=== PATIENT | female | born 1995 | race American Indian/Alaskan Native ===

== ENCOUNTER 2019-04-12 05:57 | Inpatient (IN) | payer MEDICAID ==
[2019-04-12] MEDS ORDERED: LACTATED RINGERS 1,000 ML ONE (06:23)
[2019-04-12] MEDS ORDERED: PITOCin/NS 20 UNIT/1000ML DRIP 20,000 MILLIUNITS/1,000 ML BAG IV ONE (06:24)
[2019-04-12] MEDS ORDERED: BRETHINE SUB-Q PRN (06:30)
[2019-04-12] MEDS ORDERED: MINERAL OIL PO PRN (06:30)
[2019-04-12] MEDS ORDERED: XYLOCAINE 2% INFILTRATI ONE (06:30)
[2019-04-12] MEDS ORDERED: BRETHINE IVP PRN (06:30)
[2019-04-12] MEDS ORDERED: SUBLIMAZE ONE (06:46)
[2019-04-12] MEDS ORDERED: PITOCin/NS 20 UNIT/1000ML DRIP 20 UNITS/1,000 ML BAG IV SCH ×2 (07:00→09:38)
[2019-04-12] MEDS ORDERED: LACTATED RINGERS 1,000 ML IV SCH (07:00)
[2019-04-12] MEDS ORDERED: PITOCin/NS 30 UNIT/500ML 30 UNITS/500 ML BAG IV SCH (07:00)
[2019-04-12 07:01] LABS: Hematocrit 33.6 % (30.3-42.9); Mean Corpuscular HGB Conc 33 % (30-34); Mean Corpuscular Volume 77 fl (79-97); Platelet Count 283 K/mm3 (140-440); Red Blood Count 4.35 M/mm3 (3.65-5.03)
[2019-04-12] MEDS ORDERED: SUBLIMAZE IV ONE (07:25)
--- NOTE | 2019-04-12 07:43 | History and Physical Report ---
History of Present Illness Date of examination: 04/12/19 Date of admission: 04/12/19 06:02 Chief complaint: contractions History of present illness: Pt is a 23 year old -[place] female BUZZ 04/15/19 at 39w4d who presents with contractions and advanced cervical dilation. She received care at an office that delivers at [facility] and presents with some of her labs. She is grossly ruptured on presentation. Her GBS status is negative. Past History Past Medical History: no pertinent history Past Surgical History: no surgical history - Obstetrical History Expected Date of Delivery: 04/15/19 Actual Gestation: 39 Week(s) 4 Day(s) : 2 Para: 1 Hx # Term Pregnancies: 1 Number of Pregnancies: 0 Spontaneous Abortions: 0 Induced : 0 Number of Living Children: 1 Medications and Allergies Allergies Allergy/AdvReac Type Severity Reaction Status Date / Time No Known Allergies Allergy Verified 04/12/19 06:26 Home Medications Medication Instructions Recorded Confirmed Last Taken Type Gentamicin 0.3% Ophth Soln 1 drops OP Q4H #1 bottle 03/25/14 Unknown Rx Active Meds: Active Medications Ephedrine Sulfate (Ephedrine Sulfate) 10 mg IV Q2M PRN PRN Reason: Hypotension Oxytocin/Sodium Chloride (Pitocin/Ns 20 Unit/1000ml Drip) 20 units in 1,000 mls @ 125 mls/hr IV DIRECT ITALIA Last Admin: 04/12/19 07:24 Dose: 125 mls/hr Documented by: Oxytocin/Sodium Chloride (Pitocin/Ns 30 Unit/500ml) 30 units in 500 mls @ 1 mls/hr IV TITR ITALIA; Protocol Lactated Ringer's (Lactated Ringers) 1,000 mls @ 125 mls/hr IV DIRECT ITALIA Last Admin: 04/12/19 06:50 Dose: 125 mls/hr Documented by: Mineral Oil (Mineral Oil) 30 ml PO QHS PRN PRN Reason: Constipation Terbutaline Sulfate (Brethine) 0.25 mg SUB-Q ONCE PRN PRN Reason: Hyperstimulation/Hypertonicity Terbutaline Sulfate (Brethine) 0.25 mg IVP ONCE PRN PRN Reason: Hyperstimulation/Hypertonicity Review of Systems All systems: negative - Vital Signs Vital signs: Vital Signs Pulse Pulse Ox 92 H 100 04/12/19 06:24 04/12/19 06:24 Temp Pulse Resp BP Pulse Ox 106 H 107/57 98 04/12/19 07:14 04/12/19 07:14 04/12/19 06:54 - Physical Exam Breasts: Positive: deferred Cardiovascular: Regular rate Lungs: Positive: Clear to auscultation Abdomen: Positive: soft (obese, gravid ) Uterus: Positive: enlarged (gravid ) Extremities: Positive: normal - Obstetrical FHR: auscultation normal Uterine Contraction Monitor Mode: External Cervical Dilatation: 9 Cervical Effacement Percentage: 90 station: -1 Uterine Contraction Pattern: Regular Uterine Tone Measurement Phase: Resting Uterine Contraction Intensity: Strong/Firm Results Result Diagrams: 04/12/19 06:00 Abnormal lab results 04/12/19 Range/Units 06:00 MCV 77 L (79-97) fl MCH 25 L (28-32) pg RDW 17.0 H (13.2-15.2) % All other labs normal. Assessment and Plan A: IUP at 39w4d Active labor GBS Negative Rh Negative Obesity P: Admit to labor and delivery Routine intrapartum care
--- NOTE | 2019-04-12 07:44 | Procedure Note ---
OB Delivery Note - Delivery Date of Delivery: 04/12/19 Surgeon: EDWIN HENNESSY Estimated blood loss: other (400 mL) - Vaginal Delivery presentation: vertex Delivery position: OA Delivery induction: none Delivery monitor: external FHT, external uterine Route of delivery: Delivery placenta: spontaneous Delivery cord: 3 umbilical vessels Episiotomy: none Delivery laceration: 2nd degree (repaired with 2-0 Vicryl in a standard fashion ) Delivery repair: vicryl Anesthesia: local, intravenous - A at 1 minute: 8 at 5 minutes: 9 Infant Gender: Male (3644g (8lb 1 oz) @ 0700 AM)
[2019-04-12] MEDS ORDERED: BENADRYL PO PRN (09:38)
[2019-04-12] MEDS ORDERED: LANSINOH TP PRN (09:38)
[2019-04-12] MEDS ORDERED: TYLENOL PO PRN (09:38)
[2019-04-12] MEDS ORDERED: SODIUM CHLORIDE FLUSH SYRINGE 10 ML IV NR (09:38)
[2019-04-12] MEDS ORDERED: PHENERGAN PO PRN (09:38)
[2019-04-12] MEDS ORDERED: PHENERGAN PR PRN (09:38)
[2019-04-12] MEDS ORDERED: DERMOPLAST TP PRN (09:38)
[2019-04-12] MEDS ORDERED: ZOFRAN IV PRN (09:38)
[2019-04-12] MEDS ORDERED: TUCKS PAD TP PRN (09:38)
[2019-04-12] MEDS ORDERED: DULCOLAX PR PRN (10:00)
[2019-04-12] MEDS: FEOSOL PO SCH ×2 (11:07→21:49)
[2019-04-12] MEDS: IBUPROFEN PO SCH ×2 (11:07→23:39)
[2019-04-12] MEDS: NORCO 5/325 PO PRN (13:30)
[2019-04-12 19:16] LABS: Hematocrit 28.5 % (30.3-42.9); Hemoglobin 9.6 gm/dl (10.1-14.3)
[2019-04-12] MEDS ORDERED: MILK OF MAGNESIA PO PRN (22:00)
[2019-04-13] MEDS: IBUPROFEN PO SCH ×2 (05:04→11:54)
[2019-04-13] MEDS ORDERED: BOOSTRIX IM ONE (06:00)
[2019-04-13] MEDS: FEOSOL PO SCH (09:33)
[2019-04-13] MEDS: NORCO 5/325 PO PRN (09:43)
[2019-04-13] MEDS ORDERED: M-M-R II VACCINE SUB-Q ONE (10:00)
--- NOTE | 2019-04-13 10:45 | Discharge Summary ---
Providers - Providers Date of Admission: 04/12/19 06:02 Date of discharge: 04/14/19 Attending physician: EDWIN HENNESSY Primary care physician: EDWIN HENNESSY Hospitalization Reason for admission: active labor Delivery: Episiotomy: none Laceration: none Incision: normal, dry, intact Other procedures: none complications: none Discharge diagnosis: IUP at term delivered baby: male Hospital course: unremarkable hopsital course for a . Discharged home PP day2. on iron for anemia of 9 Condition at discharge: Good Disposition: DC-01 TO HOME OR SELFCARE Plan - Provider Discharge Summary Activity: routine, no sex for 6 weeks, no strenuous exercise Diet: routine Instructions: routine Additional instructions: [] Smoking cessation referral if applicable(refer to patient education folder for contact #) [] Refer to [facility] Booklet Call your doctor immediately for: * Fever > 100.5 * Heavy vaginal bleeding ( >1 pad per hour) * Severe persistent headache * Shortness of breath * Reddened, hot, painful area to leg or breast * Drainage or odor from incision. * Keep incision clean and dry at all times and follow doctor's instructions regarding bathing/showering - Follow up plan Follow up: EDWIN HENNESSY MD [Primary Care Provider] - 05/09/19
--- NOTE | 2019-04-13 10:45 | Progress Note ---
Assessment and Plan A/P PPD 1 routine PP care hem 11-9 on iron for acute blood loss Subjective - Subjective Date of service: 04/13/19 Principal diagnosis: s/p Patient reports: appetite normal, voiding normally, pain well controlled, ambulating normally : doing well Objective - Vital Signs Latest vital signs: Vital Signs Temp Pulse Resp BP BP Pulse Ox 04/13/19 07:57 97.6 F 91 H 20 116/64 92 04/13/19 05:04 20 04/13/19 01:20 98.2 F 79 18 116/65 97 04/12/19 23:39 20 04/12/19 16:38 97.8 F 89 18 105/64 100 Intake and Output 04/12/19 04/13/19 04/13/19 23:59 07:59 15:59 Intake Total 1920 480 Output Total 2 Balance 1920 478 Intake: Oral 720 Intake, Free Water 1200 480 Output: Urine 2 Void 2 Other: Total, Intake Amount 240 Total, Output Amount 2 # Voids Void 1 - Exam Breasts: Present: normal Cardiovascular: Present: Regular rate, Normal S1 Lungs: Present: Clear to auscultation, Normal air movement Abdomen: Present: normal appearance, soft, normal bowel sounds. Absent: distention, tenderness, guarding Uterus: Present: normal, firm, fundal height below umbilicus. Absent: bogginess, tenderness Extremities: Present: normal Deep Tendon Reflex Grade: Normal +2 - Labs Labs: Abnormal lab results 04/12/19 Range/Units 18:50 Hgb 9.6 L (10.1-14.3) gm/dl Hct 28.5 L (30.3-42.9) %
[2019-04-13 14:39] VITALS: BP 118/69
== END 2019-04-13 16:30 | disposition home or self-care (01) | DRG 775 ==
LOC: TRG 05:57 → LD 06:02 → OB 09:23
PROVIDERS: ADMIT Obstetrics & Gynecology; ATTEND Obstetrics & Gynecology
PROC: 10E0XZZ Delivery of Products of Conception, External Approach (ICD-10-PCS; principal; 2019-04-12)
PROC: 0KQM0ZZ Repair Perineum Muscle, Open Approach (ICD-10-PCS; 2019-04-12)
PROC: 3E0334Z Introduction of Serum, Toxoid and Vaccine into Peripheral Vein, Percutaneous Approach (ICD-10-PCS; 2019-04-12)
PROC: 3E0234Z Introduction of Serum, Toxoid and Vaccine into Muscle, Percutaneous Approach (ICD-10-PCS; 2019-04-13)
DX: O99.214 Obesity complicating childbirth (principal); O99.02 Anemia complicating childbirth; O70.1 Second degree perineal laceration during delivery; D64.9 Anemia, unspecified; E66.9 Obesity, unspecified; Z23 Encounter for immunization; Z37.0 Single live birth; Z3A.39 39 weeks gestation of pregnancy
CPT/HCPCS: 36415; 85014; 85018; 85027; 85461; 86592; 86850; 86870; 86900; 86901; 88307; G0378; A6250; J2590; J2790; J3010; J7120